=== PATIENT | male | born 1990 | race Caucasian/White ===

== ENCOUNTER 2019-08-19 15:51 | Emergency (ER) | payer OTHER ==
[~2019-08-19] VITALS: Ht 193 cm; Wt 154.2 kg
[2019-08-19 18:41] LABS: URINE BLOOD 2+ (Negative); URINE CLARITY CLEAR; URINE COLOR YELLOW; URINE GLUCOSE-RANDOM NEGATIVE (Negative); URINE KETONES NEGATIVE (Negative); URINE LEUKOCYTES-REFLEX NEGATIVE (Negative); URINE NITRITE-REFLEX NEGATIVE (Negative); URINE PROTEIN TRACE (Negative); URINE SPECIFIC GRAVITY 1.025 (1.005-1.030); URINE UROBILINOGEN 0.2 E.U./dl (0.2-1.0)
[2019-08-19 18:42] LABS: URINE BILIRUBIN 1+ (Negative)
[2019-08-19 18:48] LABS: HYALINE CASTS 0-3 Few /LPF (None Seen); MUCUS 4-6 Moderate strn/LPF (None Seen); SQUAMOUS 0-3 Few /LPF (0-3)
[2019-08-19 18:49] LABS: BACTERIA-REFLEX None Seen /HPF (None Seen); CRYSTALS None Seen /LPF (None Seen); ICTOTEST (BILI CONFIRMATORY) Negative (Negative); URINE WBC-REFLEX None Seen /HPF (0-5)
[2019-08-19] MEDS ORDERED: FLEXERIL PO (19:38)
[2019-08-19] MEDS ORDERED: IBU800 MG PO (19:38)
[2019-08-19] MEDS ORDERED: MEDROLDOSEPACK PO (19:39)
[2019-08-19 19:50] VITALS: BP 139/97
== END 2019-08-19 19:51 | disposition home or self-care (01) ==
LOC: M.ERS 15:51
PROVIDERS: Nurse Practitioner
DX: R31.9 Hematuria, unspecified (principal); M54.9 Dorsalgia, unspecified; I10 Essential (primary) hypertension; Z88.0 Allergy status to penicillin; Z91.013 Allergy to seafood